=== PATIENT | female | born 1975 | race Asian ===

== ENCOUNTER 2016-12-03 06:03 | Day surgery (SDC) | payer OTHER ==
--- NOTE | 2016-11-21 10:35 | HISTORY AND PHYSICAL ---
ADMITTED: 12/03/2016 CHIEF COMPLAINT: 1. Polymenorrhea HISTORY OF PRESENT ILLNESS: This patient delivered twins approximately 15 months ago. She has been experiencing periods every 2 weeks, for the last 5 or so months. The flow is moderate and lasts 4-5 days. She is still breast feeding age baby approximately 3 times per day, and control is by tubal ligation. An ultrasound was done, measuring her uterus at 7.2 cm, anteverted, with a 2.1 cm anterior intramural fibroid. The endometrium measured 3 mm, with a small amount of fluid in the endometrial canal. The ovaries were normal in appearance. Options for sampling and for treatment were discussed with her, including the risks and benefits of each option, and she has chosen to schedule for hysteroscopy, D&C. Surgical risks have also been reviewed with her, including infection, bleeding, damage to her structures, anesthesia, and the possibility of further surgery at the time or in the future. The potential effect of the small fibroid has also been reviewed with her. Informed consent has been signed. MEDICAL/SURGICAL HISTORY: Menstrual history includes menarche at age 17, LMP 12/2015. Obstetrical history includes 3 sections, in 2007, 2009 and 2014, the last of which was with twins, and she has had a tubal ligation at the time of her last C -section. Past surgical history: Three C-sections, the last 1 including a tubal ligation. Medical history: Denies. MEDICATIONS: 1. Denies. ALLERGIES: 1. NO KNOWN DRUG ALLERGIES. SOCIAL HISTORY: She is . G3 P 3. Denies tobacco, alcohol or drug use. FAMILY HISTORY: Her mother and 1 sister and 1 brother are alive. Her mother has hypertension and diabetes. Her father is . Her maternal grandfather had colon cancer. She denies any family history of heart disease or stroke. REVIEW OF SYSTEMS: She denies headache, ear pain, throat pain, chest pain, shortness of breath, digestive disorders and joint and extremity problems. PHYSICAL EXAMINATION: VITAL SIGNS: She is 5 feet 4 inches, weight is 117, blood pressure 108/70, pulse 72, temperature 98.3. GENERAL: She is well developed, well nourished, alert, and oriented. HEENT: Within normal limits. No thyromegaly. HEART/LUNGS: Normal. ABDOMEN: Soft, nontender. EXTREMITIES: No clubbing, cyanosis, or edema. IMPRESSION: 1. Polymenorrhea PLAN: Hysteroscopy, dilatation and curettage scheduled for 12/03/2016.
[~2016-12-03 06:03] MED LIST: IRON325 MG PO; OXYCODONE/ACETA1 TA1 PO; PRENATAL COMPLETE PO
--- NOTE | 2016-12-03 06:46 | NUR ---
PRE OP INSTRUCTIONS GIVEN AND SAFETY ISSUES DISCUSSED PT AND SPOUSE HAD QUESTIONS ANSWERED PT CONFIRMED PROCEDURE PT VERIFEID SIGNATURE
[2016-12-03] MEDS ORDERED: IBUPROFEN400 MG PO (08:27)
[2016-12-03] MEDS ORDERED: VICODIN EQUIVAL1 TAB PO (08:27)
--- NOTE | 2016-12-03 08:28 | Provider's Discharge Care Plan ---
Problem, Goal, Plan Problem List 1. Post-op pain Goals: Improve function Instructions: Follow up as directed
--- NOTE | 2016-12-03 08:28 | Provider's Discharge Care Plan ---
Problem, Goal, Plan Problem List 1. Post-op pain Goals: Improve function Instructions: Follow up as directed
--- NOTE | 2016-12-03 09:17 | NUR ---
PT IS AWAKE AND ALERT. PT DENIES PAIN OR NAUSEA. PT STATES SHE IS WARM AND COMFORTABLE. VSS. ABDOMEN IS SOFT. THERE IS NO SIGNS OR SYMPTOMS OF VAGINAL BLEEDING.
--- NOTE | 2016-12-03 09:52 | OPERATIVE REPORT ---
DATE OF SURGERY: 12/03/2016 SURGEON: Emerald Lane DO PREOPERATIVE DIAGNOSIS: 1. Polymenorrhea POSTOPERATIVE DIAGNOSIS: 1. Polymenorrhea PROCEDURES PERFORMED: 1. Hysteroscopy 2. Dilatation and curettage ANESTHESIA: LMA. COMPLICATIONS: None. CONDITION: Stable. ESTIMATED BLOOD LOSS: Minimal. FLUIDS: 300 mL of lactated Ringer's. Blood administered: None. DRAINS: Zero. URINE OUTPUT: 300 mL preoperatively. PATHOLOGY SPECIMEN: Endocervical canal curettings, endometrial cavity curettings. IMPLANTS/GRAFTS: None. SURGICAL FINDINGS: Uterus sounded to 10 cm. Abundant endometrium. SURGICAL TECHNIQUE: The patient was taken to the operating room where her anesthesia was obtained. She was prepped and draped in the normal sterile fashion in the lithotomy position. A pelvic exam under anesthesia was normal, and the sterile speculum was placed. The cervix was circumferentially injected with 0.5% Marcaine with epinephrine. A single-tooth tenaculum had been used to grasp the anterior lip and the cervix was serially dilated to a #8 Portuguese dilator. The hysteroscope was advanced into the cervical canal, which was clear. On entry into the endometrial cavity, there was some fragmented tissue visible, which appeared to be raised endometrium due to the dilators. Both ostia were seen. No formed polyps were noted. The scope was removed. Endocervical curettings were obtained followed by endometrial curettings with abundant endometrial tissue noted. On completion of the D&C, the instruments were removed from the patient. There was a small amount of bleeding from the tenaculum site, which resolved with direct pressure. She was then awakened from her anesthesia and taken to the recovery room in stable condition.
--- NOTE | 2016-12-03 11:51 | NUR ---
P RECEIVED FROM PACU EASILY AROUSABLE TO VOICE AND CONVERSING APPROPRIATELY. DENIED PAIN OR NAUSEA ON ARRIVAL TO SCU. WARM BLANKETS FOR COMFORT. VSS. PT AMBULATED IN THE HALLWAY WITHOUT PROBLEMS. VOIDED PRIOR TO DISCHARGE. DISCHARGE INSTRUCTIONS REVIEWED WITH PT AND HER , INCLUDING PAIN MEDICATIONS, ACTIVITY, PELVIC REST, SYMPTOMS TO REPORT, WHEN TO SEEK EMERGENCY CARE AND FOLLOW-UP PLAN. QUESTIONS ANSWERED. IV ACCESS DISCONTINUED. PT DRANK WATER, BUT DECLINED ANY FOOD PRIOR TO LEAVING. WRITTEN DISCHARGE INSTRUCTIONS AND PRESCRIPTIONS FOR VICODIN AND IBUPROFEN GIVEN TO PT. PT DISCHARGED TO HOME. TAKEN TO EXIT VIA WC, ACCOMPANIED BY RN. BELONGINGS HOME WITH PT.
== END 2016-12-03 11:40 | disposition home or self-care (01) ==
LOC: OR SRH 06:03 → SCU SRH 07:00
PROVIDERS: Obstetrics & Gynecology
PROC: 0UDB8ZX Extraction of Endometrium, Via Natural or Artificial Opening Endoscopic, Diagnostic (ICD-10-PCS; principal; 2016-12-03 07:30)
DX: N92.0 Excessive and frequent menstruation with regular cycle (principal)
CPT/HCPCS: 29229; 29240; 50004; 60001; 70002; 80102; 80212; 83526